=== PATIENT | female | born 1990 | race Caucasian/White ===

== ENCOUNTER 2023-05-01 17:30 | Emergency (ER) | payer OTHER, SELFPAY ==
[2023-05-01 17:59] VITALS: BP 120/70; PULSE 67; RESP 18; TEMP 36.7; O2SAT 100
--- NOTE | 2023-05-01 18:03 | ED.EYEPROB ---
HPI - Eye Problem General Chief complaint: Eye Problems Stated complaint: rt eye redness and irritation Source: patient and RN notes reviewed History of Present Illness HPI Narrative: 32-year-old female presents to urgent care with complaints of right eye irritation that started this morning. Patient states it was very mild when she woke so she went to work. Patient states it worsened over the course of the day. Patient reports itching discharge, and redness from the right eye. Patient does not wear contacts. Patient denies any visual disturbance or extraocular movement pain. Some parts of this dictation were generated by voice recognition software and may contain typographical and/or grammatical inaccuracies. Review of Systems Review of Systems: CONSTITUTIONAL: Denies fever, chills, or sweats. EYES: right eye irritation ENT: Denies otalgia and sore throat CARDIOVASCULAR: Denies chest pain, palpitations, or edema. RESPIRATORY: Denies cough or dyspnea. GASTROINTESTINAL: Denies abdominal pain, nausea, vomiting, or diarrhea. GENITOURINARY: Denies dysuria or hematuria. SKIN: Denies rash or itching. MUSCULOSKELETAL: Denies back pain, joint pain, or myalgia. NEUROLOGIC: Denies headache, numbness, or weakness. Pertinent positives per HPI. PMFSH Comments At the time of my signature, I reviewed and agree with the nursing past medical, surgical, social, and family history. There is no relevant family history pertinent to the patient complaint. Exam Narrative: GENERAL: This is a well-nourished, well-developed patient, in no apparent distress. HEAD: normocephalic, atraumatic. EYES: Right sclera erythremic, upper lid mildly swollen, conjunctiva injected, white, thick, discharge noted in right eye. No rash or surrounding erythrema noted. EARS: External ears normal, auditory canals clear and without drainage, TMs normal without perforation. Hearing grossly intact. NOSE: External nose normal with no obvious nasal discharge, nares without redness, no rhinorrhea. THROAT: Mucous membranes moist, posterior pharynx clear. NECK: Neck supple, non-tender without lymphadenopathy, masses or thyromegaly. CARDIOVASCULAR: Regular rate RESPIRATORY: No respiratory distress SKIN: warm, intact with no suspicious lesions or rash, good texture and turgor. NEURO: awake, alert, and oriented to person, place and time. There were no obvious focal neurologic abnormalities. Course Course Level of Care: Express Care Visit Vital Signs Vital signs: Vital Signs Temperature 98.1 F 05/01/23 17:59 Pulse Rate 67 05/01/23 17:59 Respiratory Rate 18 05/01/23 17:59 Blood Pressure 120/70 05/01/23 17:59 Pulse Oximetry 100 05/01/23 17:59 Oxygen Delivery Room Air 05/01/23 17:59 Temperature 98.1 F 05/01/23 17:59 Pulse Rate 67 05/01/23 17:59 Respiratory Rate 18 05/01/23 17:59 Blood Pressure 120/70 05/01/23 17:59 Pulse Oximetry 100 05/01/23 17:59 Oxygen Delivery Room Air 05/01/23 17:59 reviewed MDM - Eye Problem MDM Narrative Medical decision making narrative: Your exam today shows Conjunctivitis, You have been given a prescription for eye drops. Use the eye drops as instructed. If you are not better in two (2) days, you need to follow up with an numerical control programmer. Do not rub the eye or put anything else in the eye, this can cause abrasions (scratches) on the eye or lead to vision loss. Also it is important not to touch the tube or tip of drops to the eye, as this can cause further infection. Wash your hands very well before instilling the medication. Handwashing can help prevent the spread of disease. Follow up with PCP in 7-10 days Return to ER for problems Contact [facility] if you need an Seafood Manager Differential Diagnosis Differential diagnosis: Likely corneal abrasion, conjunctivitis and other (blepharitis) Critical Care Time Critical Care Time Critical Care Time: No Dischar
== END 2023-05-01 18:19 | disposition home or self-care (01) ==
PROVIDERS: Emergency Provider Nurse Practitioner Family
DX: H10.9 Unspecified conjunctivitis (principal)
CPT/HCPCS: 99213; G0463

== ENCOUNTER 2023-05-27 16:08 | Outpatient (CLI) | payer OTHER, SELFPAY ==
[2023-05-27 16:56] LABS: Basophils Absolute Auto 0.1 K/mm3 (0.0-0.1); Eosinophils Absolute Auto 0.1 K/mm3 (0-0.3); Eosinophils Percent Auto 0.8 % (0-4.4); Hematocrit 37.4 % (37.0-47.0); Hemoglobin 12.6 g/dL (12.0-15.0); Immature Granulocyte Absolute 0.01 K/mm3 (0.00-0.031); Immature Granulocyte Percent A 0.1 % (0-0.5); Lymphocytes Absolute Auto 2.53 K/mm3 (0.9-3.2); Lymphocytes Percent Auto 35.5 % (18.3-44.2); Mean Corpuscular HGB Conc 33.7 g/dl (32-36); Mean Corpuscular Hemoglobin 30.4 pg (26-34); Mean Corpuscular Volume 90.1 fl (80-100); Mean Platelet Volume 10.5 fl (7.4-10.4); Monocytes Absolute Auto 0.5 K/mm3 (0.1-0.6); Monocytes Percent Auto 7.3 % (2.6-8.5); Neutrophils Absolute Auto 3.9 K/mm3 (1.3-6.7); Neutrophils Percent Auto 55.3 % (45.5-73.1); Platelet Count Result 290 k/mm3 (150-375); Red Blood Count 4.15 M/mm3 (4.2-5.4); Red Cell Distribution Width 12.5 % (11.5-14.5); White Blood Count 7.1 K/mm3 (4.5-10.0)
[2023-05-27 16:58] LABS: Alanine Aminotransferase 17 U/L (6-35); Albumin Level 4.3 g/dL (3.5-5.1); Alkaline Phosphatase 84 U/L (38-126); Anion Gap 6 mmol/L (8-16); Aspartate Amino Transferase 29 U/L (14-36); Bilirubin,Total 0.3 mg/dL (0.2-1.3); Blood Urea Nitrogen 15 mg/dL (7-17); Carbon Dioxide 26 mmol/L (22-30); Chloride 103 mmol/L (98-107); Cholesterol 164 mg/dL (0-200); Estimated Glomerular Filt Rate > 60; Glucose 88 mg/dL (65-110); HDL Direct 45 mg/dL; Potassium 3.8 mmol/L (3.4-5.0); Sodium 135 mmol/L (137-145); Triglycerides 128 mg/dL (<150)
[2023-05-27 17:09] LABS: LDL Cholesterol Direct 93 mg/dL
[2023-05-27 17:35] LABS: Hemoglobin A1C 5.1 % (<5.7)
[2023-05-27 17:50] LABS: Vitamin D 25 Hydroxy 52.4 ng/mL
[2023-05-27 18:04] LABS: Thyroid Stimulating Hormone Reflex 0.738 uIU/mL (0.465-4.68)
== END 2023-05-27 16:09 | disposition home or self-care (01) ==
PROVIDERS: Visit Provider Obstetrics & Gynecology
DX: Z00.00 Encounter for general adult medical examination without abnormal findings (principal)
CPT/HCPCS: 36415; 80053; 80061; 80307; 82306; 82607; 83036; 84443; 85025

== ENCOUNTER 2024-02-13 18:58 | Emergency (ER) | payer OTHER, SELFPAY ==
[2024-02-13 19:19] VITALS: BP 137/73; PULSE 86; RESP 18; TEMP 36.3; O2SAT 100
--- NOTE | 2024-02-13 19:25 | ED.FEMALEGU ---
HPI - Female Genitourinary General Chief complaint: Urogenital-Female Stated complaint: uti symptoms Time Seen by Provider: 02/13/24 19:25 Source: patient, RN notes reviewed and old records reviewed Mode of arrival: ambulatory Limitations: no limitations History of Present Illness HPI Narrative: 33-year-old female presents to the [facility] with concerns for a UTI. Patient reports burning with urination since yesterday morning when she woke up. Taken [id number] UTI test and reports it being positive for leukocytes Patient denies any abdominal pain, chest pain. No nausea vomiting or diarrhea. States that her lower back aches but no significant pain. Denies fevers No CVA tenderness Last menstrual period 1 week ago Onset (ago): day(s) (1) Related Data Home Medications Medication Instructions Recorded Confirmed norelgestromin 150 mcg-e.estradiol patch 02/13/24 35 mcg/24 hr weekly transderm patch (Xulane) Allergies Allergy/AdvReac Type Severity Reaction Status Date / Time Penicillins Allergy Unknown Verified 02/13/24 19:23 Review of Systems Review of Systems: All systems reviewed & are unremarkable except as noted in HPI and below Constitutional: Constitutional: Reports no additional constitutional complaints Eyes: Eyes: Reports no additional eye complaints ENT: Reports system reviewed and no additional complaints, except as documented Cardiovascular: Cardiovascular: Reports no additional cardiovascular complaints, Denies chest pain and Denies dyspnea Respiratory: Respiratory: Reports no additional respiratory complaints, Denies chest congestion, Denies cough and Denies dyspnea Gastrointestinal: Gastrointestinal: Reports no additional gastrointestinal complaints, Denies abdominal pain, Denies nausea and Denies vomiting Genitourinary: Genitourinary: Reports as per HPI and Reports dysuria Musculoskeletal: Musculoskeletal: Reports no additional musculoskeletal complaints Integumentary/Breasts: Skin/Breast: Reports system reviewed and no additional complaints, except as docu Neurologic: Reports system reviewed and no additional complaints, except as documented Psychiatric: Psychiatric: Reports no additional psychiatric complaints Allergic/Immunologic: Allergic/Immunologic: Reports no additional allergic/immunologic complaints PMFSH Comments At the time of my signature, I reviewed and agree with the nursing past medical, surgical, social, and family history. There is no relevant family history pertinent to the patient complaint. Exam Const: General: cooperative, healthy appearing, comfortable, no acute distress, well developed, alert and well nourished Nutritional Appearance: well nourished Orientation/consciousness: patient oriented x3 Limitations: no limitations HENMT: Head: normal to inspection Ears: hearing grossly normal bilaterally and external ears normal Face/Nose/Sinus: Normal external nose present, Normal nares present, Normal nasal mucous membranes and turbinates present, normal facial exam and face symmetric Face and sinus: normal facial exam and face symmetric Mouth: Yes lip normal and Yes moist mucous membranes Eyes: General: appearance normal, both eyes and all related structures Alignment and Position: alignment normal Periorbital: periorbital findings normal Pupils: Equal, round and reactive pupils present EOM: EOMs intact bilaterally Neck: Neck: normal visual inspection, full ROM, no lymphadenopathy and no meningeal signs Chest: Chest palpation & inspection: normal inspection of the chest Resp: Effort & Inspection: normal respiratory effort and able to speak in complete sentences Auscultation: clear to auscultation bilaterally, no crackles, no rales, no rhonchi and no wheezes Cardio: Rate: regular rate Rhythm: regular rhythm GI: GI Palp: No abdominal tenderness : General: Yes no CVA tenderness Back/Spine/Pelvis: Cervical Spine: cervical ROM normal Skin: Gene
== END 2024-02-13 19:38 | disposition home or self-care (01) ==
PROVIDERS: Emergency Provider Nurse Practitioner
DX: N30.01 Acute cystitis with hematuria (principal); B96.20 Unspecified Escherichia coli [E. coli] as the cause of diseases classified elsewhere
CPT/HCPCS: 81003; 87077; 87086; 87088; 87186; 99213; G0463

== ENCOUNTER 2025-07-06 18:42 | Emergency (ER) | payer OTHER, SELFPAY ==
--- OUTSIDE RECORDS SUMMARY | 2025-07-06 18:45 | XMS_ITS | Clinical Summary ---
Author Organization [facility] Address [address] [place] [address] Care Team Providers Care Progressive Care Nurse Name Role Phone Willam Bolivar MD Primary Care Provider + Allergies Active Allergy Reactions Criticality Noted Date Comments Penicillins Hives,Rash Low 06/18/2004 Medications XULANE 150-35 MCG/24HR packet APPLY 1 PATCH TRANSDERMALLY ONCE A WEEK 05/03/20 23 Active gabapentin (NEURONTIN) 100 MG capsuleIndications :Chronic left-sided thoracic back pain Take 1 capsule (100 mg total) by mouth 3 (three) times daily. 90 capsule 07/07/20 23 Active Additional Information Patient not taking.Reported on 01/29/2024 olopatadine (PATANOL) 0.1 % ophthalmic solutionIndication s:Conjunctivitis of left eye, unspecified conjunctivitis type Place 1 drop into the left eye 2 (two) times daily. 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 ([facility]/HCC) 01/04/2021 ([facility]) 01/03/2021 Immunizations Immunization Administration Dates Next Due Dtap (Generic) 04/09/1995, 2,1990,1989,1990 H1N1 2009 Influenza Vaccine 09/26/2009 HPV4 (Gardasil) 11/08/2014,05/11/2014 Hepatitis B 03/20/2001,11/05/2000,10/02/2000 Influenza Adult (Generic) 08/27/2017,,09/15/2015,2012,09/24/2012,01/03/2010 MMR (Generic) 10/30/1994,08/27/1991 Opv 04/09/1995, 2,1990,1989,1990 PFIZER COVID-19 (GANN CAP), MRNA, LNP-S, PF, 30 MCG/0.3 ML NICOLE-SUCROSE, IM 12/18/2021 PFIZER COVID-19 (ORIGINAL FORMULATION, PURPLE CAP) mRNA, LNP-S, PF, 30 MCG/0.3 ML DOSE 11/07/2021 Td 04/29/2005 Tdap (Generic) 11/22/2020,06/11/2016 Varicella Vaccine 07/09/2016,06/11/2016 Family History Medical History Relation Comments Cancer Maternal Grandfather lung-smoker Cancer Maternal Grandmother colon Stroke Paternal Grandmother Relation Status Comments Maternal Grandfather Maternal Grandmother Paternal Grandmother Social History Tobacco Use Types Packs/Day Years Used Date Smoking Tobacco: Never Smokeless Tobacco: Never Tobacco Cessation:Counseling Given: No Alcohol Use Standard Drinks/Week Comments Not Currently 0 (1 standard drink = 0.6 oz pur e alcohol) social PHQ-2 Answer Date Recorded Patient Health Questionnaire-2 Score 0 01/29/2024 Comments No Sex and Gender Information Value Date Recorded Sex Assigned at Not on file Legal Sex Female 8:20 PM CDT Gender Identity Not on file Sexual Orientation Not on file Last Filed Vital Signs Vital Sign Reading Time Taken Comments Blood Pressure 120/64 01/29/2024 7:17 AM CDT Pulse 84 01/29/2024 7:17 AM CDT Temperature 36.9 C (98.4 F) 01/29/2024 7:17 AM CDT Respiratory Rate 20 01/29/2024 7:17 AM CDT Oxygen Saturation 100% 01/29/2024 7:17 AM CDT Inhaled Oxygen Concentration - - Weight 73 kg (161 lb) 01/29/2024 7:17 AM CDT Height 165.1 cm (5' 5) 01/29/2024 7:17 AM CDT Body Mass Index 26.79 01/29/2024 7:17 AM CDT Plan of Treatment Health Maintenance Due Date Last Done Comments Cervical Cancer Screening Pap Smear (Age 30 to 64) Every 3 Years 1990 Annual Physical 1993 Hepatitis C 2008 HPV Vaccines (3 - 3-dose series) 01/31/2015 11/08/2014, 05/11/2014 Cervical Cancer Screening Pap with HPV Testing (Age 30 to 64) Every 5 Years 2020 Cervical Cancer Screening with HPV 2020 COVID-19 Vaccine ( season) 2024 12/18/2021, 11/07/2021 PHQ-2 (Physician [place]) 11/17/2024 01/29/2024 DTaP, Tdap and Td Vaccines (8 - Td or Tdap) 11/22/2030 11/22/2020, 06/11/2016, 04/29/2005, Additional history exists Hepatitis B Vaccines Completed 03/20/2001, 11/05/2000, 10/02/2000 Meningococcal B Vaccine Aged Out No l onger eligible based on patient's age to complete this topic Meningococcal Vaccine Aged Out No kenna elver eligible based on patient's age to complete this topic Pneumococcal Vaccine: Pediatrics (0 to 5 Years) and At-Risk Patients (6 to 49 Years) Aged Out No longer eligible based on patient's age to complete this topic RSV Immunizations Under 20 Months Aged Out No longer eligible based on patient's age to complete this topic Insurance [facility] Advance Directives * Full Code (Latest Code Status on File) Date Activated Date Inactivated Comments 01/04/2021 9:34 AM 01/07/2021 2:14 PM * Full Code Date Activated Date Inactivated Comments 01/03/2021 11:19 PM 01/04/2021 9:34 AM Care Teams Progressive Care Nurse Relationship Specialty Start Date End Date Willam Bolivar MD [address] [place] [id number] PCP - General FAMILY PRACTICE 12/06/19
--- OUTSIDE RECORDS SUMMARY | 2025-07-06 18:45 | XMS_ITS | Clinical Summary ---
Author Organization [facility] Address [address] [place] [address] Care Team Providers Care Inspector Finishing Name Role Phone Yaneli Alcazar Stephanie Primary Care Provider Unavailab le Source Comments [facility],non-owned Affiliates and Associated Physician Practices is amultiple site organization consisting of ambulatory clinics and hospital sitesin [place], [place], [place] and [place]. This disclosure is being madepursuant to the Care Everywhere program and may not contain all information available regarding this patient. 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 Gender Identity Not on file Sexual Orientation Not on file Plan of Treatment Health Maintenance Due Date Last Done Comments HIV SCREENING 2005 HEPATITIS C SCREENING 05/11/2008 DTAP/TDAP/TD VACCINES (1 - Tdap) 2009 HEPATITIS B VACCINE (1 of 3 - 19+ 3-dose series) 2009 HPV VACCINE (1 - 3-dose SCDM series) 2017 COVID-19 VACCINE ( - 2023-2 5 season) 2024 DEPRESSION SCREENING 11/17/2024 INFLUENZA VACCINE (#1) 2025 ZOSTER VACCINE (1 of 2) 2040 HIB VACCINE Aged Out No longer eligi ble based on patient's age to complete this topic MENINGOCOCCAL (Group B) VACC INE SHARED DECISION-MAKING Aged Out No longer eligibl e based on patient's age to complete this topic MENINGOCOCCAL GROUPS A/C/Y/W VACCINE Aged Out No longer eligible b ased on patient's age to complete this topic PNEUMOCOCCAL VACCINE Aged Out No long er eligible based on patient's age to complete this topic Care Teams Inspector Finishing Relationship Specialty Start Date End Date Yaneli Alcazar PCP - General 06/29/16
--- OUTSIDE RECORDS SUMMARY | 2025-07-06 18:45 | XMS_ITS | Encounter Summary ---
Author Organization [facility] - [facility] Address [facility] [place] [address] Care Team Providers Care Gas Combustion Engineer Name Role Phone Willam Bolivar MD Primary Care Provider + Encounter Details Date Type Department Care Team (Late st Contact Info) Description 03/20/2023 [place] Message [address] [phone] [facility] Schedule Appointment for Annual Physical Social History Tobacco Use Types Packs/Day Years Used Date Smoking Tobacco: Never Smokeless Tobacco: Never Alcohol Use Standard Drinks/Week Comments Not Currently 0 (1 standard drink = 0.6 oz pur e alcohol) social PHQ-2 Answer Date Recorded PHQ-2 Score - If the patient scores above 3, please move on to questions 3-9 0 10/18/2022 Comments No Sex and Gender Information Value Date Recorded Sex Assigned at Not on file Legal Sex Female 8:20 PM CDT Gender Identity Not on file Sexual Orientation Not on file documented as of this encounter Functional Status * RETIRED Are you deaf or do you have serious difficulty hearing Answer Date of Assessment Author Status No 01/11/2021 11:39 AM 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 Answer Date of Assessment Author Status No 01/11/2021 11:39 AM MULTIPLE PRESSURE RIVETER OPERATOR Acti ve * Do you have serious difficulty walking or climbing stairs? Answer Date of Assessment Author Status No 01/11/2021 11:39 AM Ruby Watts RN Active * Do you have difficulty dressing or bathing? Answer Date of Assessment Author Status No 01/11/2021 11:39 AM Ruby Watts RN Active * Because of a physical, mental, or emotional condition, do you have difficulty doing errands alone such as visiting a doctor's office or shopping? Answer Date of Assessment Author Status No 01/11/2021 11:39 AM Ruby Watts RN Active documented as of this encounter Mental Status * Because of a physical, mental, or emotional condition, do you have serious difficulty concentrating, remembering, or making decisions? Answer Entry Date Author Status No 01/11/2021 11:39 AM Ruby Watts RN Active documented in this encounter Plan of Treatment Not on file documented as of this encounter Visit Diagnoses Not on filedocumented in this encounter Care Teams Gas Combustion Engineer Relationship Specialty Start Date End Date Willam Bolivar MD [address] [place] [phone] PCP - General FAMILY PRACTICE 12/06/19 documented as of this encounter
--- OUTSIDE RECORDS SUMMARY | 2025-07-06 18:45 | XMS_ITS | Encounter Summary ---
Author Organization [facility] Address [address] [place] [id number] Care Team Providers Care Exit Booth Agent Name Role Phone Willam Bolivar MD Primary Care Provider + Encounter Details Date Type Department Care Team (Late st Contact Info) Description 01/05/2003 Abstract [facility] Conversion Md, Generic Conversion, Social History Tobacco Use Types Packs/Day Years Used Date Smoking Tobacco: Never Assessed Comments Unknown Sex and Gender Information Value Date Recorded Sex Assigned at Not on file Legal Sex Female 8:20 PM CDT Gender Identity Not on file Sexual Orientation Not on file documented as of this encounter Plan of Treatment Not on file documented as of this encounter Visit Diagnoses Not on filedocumented in this encounter Additional Health Concerns Infection Onset Date Last Indicated Resolved Time COVID-19 Rule Out 10/18/2022 10/18/2022 10/18/2022 10:15 AM PATIENT ACCESS MANAGER documented as of this encounter Care Teams Exit Booth Agent Relationship Specialty Start Date End Date Willam Bolivar MD [address] [facility] [address] [place] [address] PCP - General FAMILY PRACTICE 12/06/19 documented as of this encounter
[2025-07-06 18:48] VITALS: BP 128/75; PULSE 77; RESP 16; TEMP 36.5; O2SAT 100
--- NOTE | 2025-07-06 19:10 | ED_ITS ---
HPI - URI/Sore Throat General Chief Complaint: Upper Respiratory Infection Stated Complaint: cold symptoms/sweatiness/weakness Time Seen by Provider: 07/06/25 19:10 History of Present Illness HPI Narrative: 35-year-old female presented for complaint of feeling cold and clammy this morning. Endorses over the last 6 days she had a sore throat and cough which has resolved. started with hoarse voice 2 days ago.Tested negative for covid at home at onset. Taking cough drops, zyrtec, cold medication. Related Data Home Medications ?Medication ?Instructions ?Recorded ?Confirmed ?Last Taken ?Type norethindrone 1 mg-ethinyl tablet 07/06/25 Unknown Hi story estradiol 10 mcg (24)-iron 10 mcg(2) tablet (Lo Loestrin Fe) Allergies Allergy/AdvReac Type Severity Reaction Status Date / Time Penicillins Allergy Intermediate Hives Verified 07/06/25 18:52 Review of Systems Review of Systems: CONSTITUTIONAL: Denies body aches, fever, reports chills, and sweats. EYES: Denies visual changes, redness, or discharge. ENT: reports hoarse voice Denies rhinorrhea, congestion, or otalgia, sore throa t CARDIOVASCULAR: Denies chest pain, palpitations, or edema. RESPIRATORY: Denies dyspnea. GASTROINTESTINAL: Denies abdominal pain, nausea, vomiting, or diarrhea. SKIN: Denies rash NEUROLOGIC: Denies headache Exam Narrative: GENERAL: well-appearing, no acute distress. EYES: conjunctivae clear ENT: Mucous membranes moist. TMs pearly ellis with normal light reflex bilaterally, left clear effusion; no tragal tenderness. Mildly hoarse voice. Oropharynx not erythematous without lesions. Tonsils absent No drooling, no trismus, uvula midline. No tripod positioning, hot potato voice, or soft palate swelling. NECK: Supple. No lymphadenopathy CHEST: Clear to auscultation, breath sounds equal. No respiratory distress, speaks in full sentences. HEART: Regular rate and rhythm. SKIN: Warm, dry, no rash. NEURO: Alert and oriented x3. Course Course Emergency Course: Patient is aware of diagnosis, understands and agrees to treatment plan. Anticipatory guidance given. Patient agrees to follow-up as directed and is aware of reasons to seek care at the emergency department. Portions of this record may have been created with voice recognition software Level of Care: Express Care Visit Vital Signs Vital signs: Vital Signs Temperature 97.7 F 07/06/25 18:48 Pulse Rate 77 07/06/25 18:48 Respiratory Rate 16 07/06/25 18:48 Blood Pressure 128/75 07/06/25 18:48 Pulse Oximetry 100 07/06/25 18:48 Oxygen Delivery Room Air 07/06/25 18:48 Temperature 97.7 F 07/06/25 18:48 Pulse Rate 77 07/06/25 18:48 Respiratory Rate 16 07/06/25 18:48 Blood Pressure 128/75 07/06/25 18:48 Pulse Oximetry 100 07/06/25 18:48 Oxygen Delivery Room Air 07/06/25 18:48 MDM - URI/Sore Throat MDM Narrative Medical decision making narrative: Negative flu and COVID result reviewed with pt. declined strep testing Advise supportive treatments. Patient is appropriate for outpatient treatment and follow-up. Differential Diagnosis Differential diagnosis: Likely upper respiratory infection, viral infection and pharyngitis Discharge Plan Discharge Clinical Impression: Upper respiratory infection Patient Disposition: Home Condition: Stable Instructions: Antibiotic Form, Upper Respiratory Infection (ED) Additional Instructions: Flu and COVID negative. Recommendations: Tylenol or ibuprofen every 8 hours as needed for pain/fever Symptomatic treatment includes: rest, fluids, and increase humidity of the air at home. Flonase spray and Zyrtec (or Claritin/Radha) if you have nasal congestion over the counter Cough syrup may cause drowsiness; avoid driving or take it at night time. Follow up with your primary care provider in 1 week. Go to the ER for worsening symptoms or concerns. Patient Language: Guamanian Prescriptions: New prednisone 20 mg tablet 40 mg PO DAILY 4 Days Qty: 8 0RF No Action Lo Loestrin Fe 1 mg-10 mcg (24)/10 mcg (2) tablet Follow-up/Referrals: JACQUELINE,Tio VILLEGAS [Primary Care Provider, Unknown] Time of Disposition: 19:23
[2025-07-06 19:15] LABS: EDCOVIDSCREEN Negative (Negative); EDINFLUASCREEN Negative (Negative); EDINFLUBSCREEN Negative (Negative)
== END 2025-07-06 19:25 | disposition home or self-care (01) ==
PROVIDERS: Emergency Provider Nurse Practitioner Family; PCP Family Medicine
DX: J06.9 Acute upper respiratory infection, unspecified (principal); Z20.822 Contact with and (suspected) exposure to COVID-19
CPT/HCPCS: 87426; 87804; 99213; G0463